=== PATIENT | female | born 1995 | race African-American/Black ===

== ENCOUNTER 2021-08-28 20:49 | Emergency (ER) | payer OTHER, SELFPAY ==
[2021-08-28 21:10] VITALS: TEMP 99.4; BMI 34.7
[2021-08-28] MEDS ORDERED: LACTATED RINGERS SOLUTION 1000 ML INFUS.BAG IV ONE (21:49)
[2021-08-28] MEDS ORDERED: LOPERAMIDE HCL 2 MG CAPSULE PO ONE (21:49)
[2021-08-28] MEDS ORDERED: ACETAMINOPHEN 1000 MG/100 ML VIAL (NON FORMULARY) IVPB ONE (21:49)
[2021-08-28 23:05] LABS: HEMATOCRIT 33.6 % (32.4-45.2); HEMOGLOBIN 11.4 GM/dL (10.7-15.3); MCH 29.2 pg (25.7-33.7); MEAN CELL VOLUME 86.6 fl (80-96); RBC 3.88 M/mm3 (3.60-5.2); WHITE BLOOD COUNT 4.7 K/mm3 (4.0-10.0)
[2021-08-28 23:06] LABS: LYMPH % 27.9 % (8-40); MCHC 33.8 g/dl (32.0-36.0); MEAN PLT VOLUME 7.9 fl (7.5-11.1); MONO % 15.3 % (3.8-10.2); NEUT % 53.7 % (42.8-82.8); PLATELET COUNT 300 10^3/uL (134-434)
[2021-08-28 23:07] LABS: BASO % 0.4 % (0-2.0); EOS % 2.7 % (0-4.5)
[2021-08-28 23:51] LABS: BLOOD UREA NITROGEN 10.9 mg/dL (7-18); CALCIUM 8.6 mg/dL (8.5-10.1); CREATININE 0.7 mg/dL (0.55-1.3); TOT PROT 7.5 g/dl (6.4-8.2)
[2021-08-28 23:52] LABS: ALBUMIN 3.5 g/dl (3.4-5.0); BILIRUBIN,TOTAL 0.5 mg/dL (0.2-1)
[2021-08-29 00:04] LABS: URINE APPEARANCE CLEAR; URINE BILIRUBIN NEGATIVE (NEGATIVE); URINE COLOR YELLOW; URINE GLUCOSE (UA) NEGATIVE (NEGATIVE); URINE KETONE TRACE (NEGATIVE)
[2021-08-29 00:05] LABS: URINE LEUK ESTERASE NEGATIVE (NEGATIVE); URINE NITRITE NEGATIVE (NEGATIVE); URINE PROTEIN NEGATIVE (NEGATIVE)
[2021-08-29 00:14] VITALS: BP 106/65; PULSE 65
== END 2021-08-29 00:43 | disposition home or self-care (01) ==
LOC: JER 20:49
PROC: 3E0333Z Introduction of Anti-inflammatory into Peripheral Vein, Percutaneous Approach (ICD-10-PCS; principal; 2021-08-28)
DX: R10.9 Unspecified abdominal pain (principal); R19.7 Diarrhea, unspecified
CPT/HCPCS: 36415; 80053; 81003; 83690; 84703; 85025; 99284-25; C9803; J0131; U0003; U0005